=== PATIENT | male | born 1990 | race Caucasian/White ===

== ENCOUNTER 2024-09-23 11:14 | Emergency (ER) | payer SELFPAY ==
[~2024-09-23] VITALS: Ht 180.3 cm; Wt 116.0 kg
[2024-09-23 11:27] VITALS: O2SAT 99
[2024-09-23] MEDS ORDERED: CEPH500C2 MT (13:16)
[2024-09-23] MEDS ORDERED: BO1 TP (13:16)
[2024-09-23 13:35] VITALS: BP 131/76; PULSE 68; RESP 12; TEMP 36.9; O2SAT 100
[2024-09-23] MEDS: TETANUS, DIPHTHERIA, PERTUSSIS VAC/PF 0.5ML (>10YR OLD) IM ONE (13:35)
[2024-09-23] MEDS: BACITRACIN ZINC OINT UDPKT TOP ONE (13:42)
[2024-09-23] MEDS: LIDOCAINE HCL 1% 20ML VIAL INFIL ONE (13:42)
== END 2024-09-23 13:42 | disposition home or self-care (01) ==
LOC: ER 11:14
DX: S61.012A Laceration without foreign body of left thumb without damage to nail, initial encounter (principal); X58.XXXA Exposure to other specified factors, initial encounter; Y93.89 Activity, other specified; Y92.89 Other specified places as the place of occurrence of the external cause; Y99.8 Other external cause status
CPT/HCPCS: 99283; 73130; 90715; 12002; 90471; J2003